=== PATIENT | female | born 1980 | race Caucasian/White ===

== ENCOUNTER 2016-09-02 22:09 | Emergency (ER) | payer MEDICARE, MEDICAID ==
[~2016-09-02] VITALS: Ht 165.1 cm; Wt 93.9 kg
[~2016-09-02 22:09] MED LIST: AC500T PO; CEPH-38 PO; CEPH500C PO; CTLP20T PO; HYDR-707 PO; MEDR150D4 IM; RNT150T PO
--- OUTSIDE RECORDS SUMMARY | 2016-09-02 22:15 | XMS REPORT ---
Author Author ESTELLE FREIRE Organization [employer] Address Unknown Phone Unavailable Care Team Providers Care Blind Aide Name Role Phone ESTELLE FREIRE CP Unavailable Allergies No Known Allergies Problems Problem Type Condition ICD-9 Code Onset Dates Condition Status Assessment Dental examination V72.2 Active Medications No Known Medications Procedures Procedure Coding System Code Date Billing Notes on claim CPT-4 EC109 December 06, 2014 Results No Known Results Summary Purpose [employer] Submission
--- NOTE | 2016-09-02 22:23 | ED Lower Extremity ---
General Stated Complaint: RIGHT ANKLE INJ Source: patient Exam Limitations: no limitations History of Present Illness Time seen by provider: 22:22 Initial Comments To ER with right lateral ankle pain and swelling after she tripped going down some stairs just prior to arrival. No other injuries. Onset: just prior to arrival Severity: mild Pain/Injury Location: right ankle Method of Injury: unknown Modifying Factors: Worse With Movement Allergies and Home Medications Allergies Coded Allergies: No Known Drug Allergies (Unverified , 03/14/11) Home Medications Citalopram Hydrobromide 20 Mg Tablet #28 1 TAB PO UD (Reported) Citalopram Hydrobromide 10 Mg Tablet #28 1 TAB PO UD (Reported) Loratadine 10 Mg Tablet #28 1 TAB PO UD (Reported) Constitutional: see HPI EENTM: see HPI Respiratory: no symptoms reported Cardiovascular: no symptoms reported Genitourinary: no symptoms reported Musculoskeletal: see HPI Skin: no symptoms reported Psychiatric/Neurological: No Symptoms Reported Past [id number]-Fhhegr Hx Patient Social History Recent Foreign Travel: No Contact w/Someone Who Travel: No Respiratory Hx Respiratory Disorders: No Cardiovascular Hx Cardiac Disorders: No Neurological Hx Neurological Disorders: No Reproductive System Hx Reproductive Disorders: No Genitourinary Hx Genitourinary Disorders: No Gastrointestinal Hx Gastrointestinal Disorders: No Musculoskeletal Hx Musculoskeletal Disorders: No Endocrine Hx Endocrine Disorders: No HEENT HX ENT Disorders: No Psychosocial Hx Psychiatric Problems: Yes Blood Transfusions Hx Blood Disorders: No Physical Exam Vital Signs Vital Sign - Last 12Hours 09/02/16 22:25 Temp 98.1 Pulse 103 Resp 18 B/P 127/87 Pulse Ox 95 O2 Delivery Room Air Capillary Refill : General Appearance: WD/WN no apparent distress HEENT: PERRL/EOMI normal ENT inspection Neck: non-tender full range of motion Respiratory: no respiratory distress no accessory muscle use Hips: bilateral hip non-tender, bilateral hip normal inspection, bilateral hip normal range of motion Legs: bilateral leg non-tender, bilateral leg normal inspection, bilateral leg normal range of motion Knees: bilateral knee non-tender, bilateral knee normal inspection, bilateral knee normal range of motion Ankles: right ankle pain, right ankle soft tissue tenderness, right ankle swelling Feet: bilateral foot non-tender, bilateral foot normal inspection, bilateral foot normal range of motion Neurologic/Psychiatric: alert normal mood/affect oriented x 3 Skin: normal color warm/dry Progress/Results/Core Measures Results/Orders My Orders Orders-WALLACE AL APRN Ankle, Right, 3 Views (09/02/16 22:21) Vital Signs/I&O Vital Sign - Last 12Hours 09/02/16 22:25 Temp 98.1 Pulse 103 Resp 18 B/P 127/87 Pulse Ox 95 O2 Delivery Room Air Departure Impression Impression: Primary Impression: Ankle sprain Qualified Code: S93.401A - Sprain of unspecified ligament of right ankle, initial encounter Disposition: HOME, SELF-CARE Condition: Stable Departure-Patient Inst. Decision time for Depature: 22:33 Referrals: DAVID FELIX MD (PCP) Primary Care Physician Patient Instructions: Ankle Sprain Add. Discharge Instructions: 1. Elevate the foot as much as possible. This will help with swelling 2. Use the ice pack as much as possible for the next 1-2 days 3. Keep the Bj wrap in place for the next 3-5 days 4. Use crutches when walking as needed for pain 5. Tylenol and Motrin for pain 6. Follow-up with your doctor in 2 weeks if you have persistent pain in the ankle. WALLACE AL APRN Sep 02, 2016 22:23
[2016-09-02] MEDS ORDERED: LORA10TA7 PO (22:25)
[2016-09-02] MEDS ORDERED: CITA20TA7 PO (22:25)
[2016-09-02] MEDS ORDERED: CITA10TA7 PO (22:25)
[2016-09-02 22:38] VITALS: BP 127/87
--- NOTE | 2016-09-03 07:03 | Diagnostic Imaging Report ---
INDICATION: Right ankle pain after fall. COMPARISON: None available. TECHNIQUE: 3 views of the right ankle. FINDINGS: There is moderate soft tissue swelling over the lateral aspect of the ankle. No acute fracture is identified. Mortise is congruent. No osteochondral lesion of the talar dome. IMPRESSION: 1. No acute fracture. 2. Extensive lateral soft tissue swelling. Dictated by: Dictated on workstation # [id number]
== END 2016-09-02 22:39 | disposition home or self-care (01) ==
LOC: EDUNIT# 22:09 → ER 22:11
DX: S93.401A Sprain of unspecified ligament of right ankle, initial encounter (principal); W10.9XXA Fall (on) (from) unspecified stairs and steps, initial encounter; Y99.8 Other external cause status
CPT/HCPCS: 73610; 99283

== ENCOUNTER → 2022-06-18 | Outpatient (CLI) | payer MEDICARE, MEDICAID ==
[~2022-06-18] MED LIST changes: +CITA10TA9 PO; +CITA20TA9 PO; +LORA10TA7 PO
--- NOTE | 2022-06-18 13:32 | Diagnostic Imaging Report ---
Indication: Routine screening. No prior mammograms are available for comparison. This is a baseline study. 2-D and 3-D bilateral screening mammography was performed with CAD. Scattered fibroglandular densities are identified bilaterally. No mass or malignant-appearing microcalcifications are seen. There are occasional benign calcifications. Axillae are unremarkable. IMPRESSION: BI-RADS Category 2 No mammographic features suspicious for malignancy are identified. ACR BI-RADS Category 2: Benign findings. Result letter will be mailed to the patient. Note: At least 10% of breast cancer is not imaged by mammography. Dictated by: Dictated on workstation # [id number]
== END ==
LOC: RAD 10:30
PROVIDERS: ATTEND Family Medicine
DX: Z12.31 Encounter for screening mammogram for malignant neoplasm of breast (principal)
CPT/HCPCS: 77063; 77067